=== PATIENT | female | born 1945 | race Two or more races ===

== ENCOUNTER 2018-12-03 08:42 | Outpatient (CLI) | payer OTHER | END 2018-12-03 08:45 | disposition home or self-care (01) | LOC: RX STUDY 08:42 | DX: R13.10 Dysphagia, unspecified (principal); K29.50 Unspecified chronic gastritis without bleeding ==

== ENCOUNTER 2019-04-21 10:50 | Outpatient (CLI) | payer OTHER | END 2019-04-21 11:07 | disposition home or self-care (01) | LOC: MAMO-SONO 10:50 | DX: Z12.31 Encounter for screening mammogram for malignant neoplasm of breast (principal); Z87.898 Personal history of other specified conditions; M75.51 Bursitis of right shoulder ==

== ENCOUNTER 2021-06-21 11:14 | Emergency (ER) | payer OTHER ==
[~2021-06-21] VITALS: Ht 162.6 cm; Wt 64.4 kg
== END 2021-06-21 13:39 | disposition home or self-care (01) ==
LOC: ER 11:14
DX: B02.9 Zoster without complications (principal)

== ENCOUNTER 2021-06-28 08:54 | Outpatient (CLI) | payer OTHER | END 2021-06-28 09:06 | disposition home or self-care (01) | LOC: MAMO-SONO 08:54 | DX: N64.4 Mastodynia (principal) ==

== ENCOUNTER 2023-01-10 10:26 | Emergency (ER) | payer OTHER ==
[~2023-01-10] VITALS: Ht 134.6 cm; Wt 63.5 kg
[2023-01-10] MEDS ORDERED: COZAAR25 MG PO (11:13)
[2023-01-10] MEDS ORDERED: OMEPRAZOLE20 M2 PO (11:14)
[2023-01-10] MEDS ORDERED: PEPCID20 MG PO (11:14)
[2023-01-10 13:36] LABS: HEMATOCRIT 35.4 % (36.0-45.00); HEMOGLOBIN 11.7 g/dL (12.0-15.00); MEAN CELL VOLUME 85.2 fL (80.00-100.00); MEAN CORPUSCULAR HEMOGLOBIN 28.1 pg (27.00-32.0); PLATELET COUNT 253 K/uL (150-450); RED BLOOD COUNT 4.16 M/uL (4.00-6.00); RED CELL DISTRIBUTION WIDTH 12.6 % (11.5-14.5)
== END 2023-01-10 15:51 | disposition home or self-care (01) ==
LOC: ER 10:26
PROVIDERS: General Practice
DX: R42 Dizziness and giddiness (principal)

== ENCOUNTER 2023-08-27 12:53 | Outpatient (CLI) | payer OTHER ==
[~2023-08-27 12:53] MED LIST: COZAAR25 MG PO; OMEPRAZOLE20 M2 PO; PEPCID20 MG PO
== END 2023-08-27 13:05 | disposition home or self-care (01) ==
LOC: MAMO-SONO 12:53
PROVIDERS: ATTEND Internal Medicine Cardiovascular Disease
DX: N60.11 Diffuse cystic mastopathy of right breast (principal); N60.12 Diffuse cystic mastopathy of left breast; Z12.31 Encounter for screening mammogram for malignant neoplasm of breast

== ENCOUNTER 2024-03-22 12:47 | Outpatient (CLI) | payer OTHER | END 2024-03-22 12:53 | disposition home or self-care (01) | LOC: RAD 12:47 | PROVIDERS: ATTEND Internal Medicine Cardiovascular Disease | DX: M12.9 Arthropathy, unspecified (principal) ==

== ENCOUNTER 2024-07-15 13:23 | Outpatient (CLI) | payer OTHER | END 2024-07-15 13:26 | disposition home or self-care (01) | LOC: RAD 13:23 | PROVIDERS: ATTEND Internal Medicine Cardiovascular Disease | DX: M19.90 Unspecified osteoarthritis, unspecified site (principal) ==

== ENCOUNTER 2024-11-18 10:51 | Outpatient (CLI) | payer OTHER | END 2024-11-18 10:56 | disposition home or self-care (01) | LOC: RAD 10:51 | PROVIDERS: ATTEND Orthopaedic Surgery | DX: M79.641 Pain in right hand (principal) ==

== ENCOUNTER 2024-12-14 12:38 | Outpatient (CLI) | payer OTHER | END 2024-12-14 12:45 | disposition home or self-care (01) | LOC: MAMO-SONO 12:38 | PROVIDERS: ATTEND Internal Medicine Cardiovascular Disease | DX: N60.11 Diffuse cystic mastopathy of right breast (principal); N60.12 Diffuse cystic mastopathy of left breast; Z12.31 Encounter for screening mammogram for malignant neoplasm of breast ==

== ENCOUNTER → 2025-02-11 | Emergency (ER) | payer OTHER ==
[~2025-02-11] VITALS: Ht 142.2 cm; Wt 62.6 kg
== END | disposition home or self-care (01) ==
LOC: ER 13:09
DX: T16.9XXA Foreign body in ear, unspecified ear, initial encounter (principal)

== ENCOUNTER 2025-02-16 14:09 | Emergency (ER) | payer OTHER ==
[~2025-02-16] VITALS: Ht 147.3 cm; Wt 63.5 kg
[2025-02-16] MEDS ORDERED: SINGULAIR5 MG PO (15:56)
[2025-02-16] MEDS ORDERED: PROAIR RESPICL90 MCG IH (15:56)
[2025-02-16] MEDS ORDERED: SYMBICORT 80/10.2 GM IH (15:57)
[2025-02-16 15:58] VITALS: BP 139/92; O2SAT 99
[2025-02-16] MEDS ORDERED: ACETAMINOPHEN 500 MG GEL..CAP PO ONE ×2 (17:12→17:15)
[2025-02-16] MEDS ORDERED: METHYLPREDNISOLONE SOD SUCC 125 MG VIAL ONE (17:13)
[2025-02-16] MEDS ORDERED: LEVALBUTEROL HCL 1.25 MG/3 ML SOLUTION IH SCH (17:15)
[2025-02-16] MEDS ORDERED: METHYLPREDNISOLONE SOD SUCC 125 MG VIAL IV ONE (17:15)
[2025-02-16 17:43] LABS: BASO % 0.5 % (0.1-1.2); EOS # 0.57 (0.04-0.54); EOS % 6.8 % (0.7-7.0); LYMPH # 2.95 (1.18-3.74); LYMPH % 35.4 % (19.3-53.1); MEAN PLATELET VOLUME 10.50 fl (9.4-12.4); MONO # 0.67 (0.24-0.82); MONO % 8.0 % (4.7-12.5); NEUT # 4.09 (1.56-6.13); NEUT % 49.2 % (34.0-71.1); RED CELL DISTRIBUTION WIDTH 12.6 % (11.6-14.4)
[2025-02-16 18:23] LABS: ALT/SGPT 27.0 U/L (12-78); AST/SGOT 18.0 U/L (15-37); BILIRUBIN TOTAL 0.32 mg/dL (0.3-1.2); BUN CREA RATIO 26.0 (7.0-25.0); CREATININE SERUM 0.53 mg/dL (0.55-1.02); GFR 111.86; GLOBULINA 4.3 G/DL (2.4-3.5); GLUCOSE FASTING 94.0 mg/dL (65-100); OSMOLALITY SERUM 285.0 MOSM/KG (275-295)
[2025-02-16] MEDS ORDERED: LEVALBUTEROL HCL 1.25 MG/3 ML SOLUTION IH ONE (18:59)
== END 2025-02-16 19:29 | disposition home or self-care (01) ==
LOC: ER 14:09
DX: J45.909 Unspecified asthma, uncomplicated (principal); I10 Essential (primary) hypertension; M79.674 Pain in right toe(s); B34.9 Viral infection, unspecified